=== PATIENT | female | born 1995 | race Caucasian/White ===

== ENCOUNTER 2017-06-16 20:06 | Emergency (ER) | payer OTHER ==
[~2017-06-16] VITALS: Ht 149.9 cm; Wt 69.0 kg
[2017-06-16 20:07] VITALS: BP 156/97; PULSE 105; RESP 16; TEMP 99.8; O2SAT 99
--- NOTE | 2017-06-16 21:13 | PD ---
HPI Chief Complaint: ENT Complaint Time Seen by Provider: 21:13 Travel History International Travel<30 days: No Contact w/Intl Traveler<30days: No Traveled to known affect area: No History of Present Illness HPI 22 year female presents to the emergency department for evaluation of sore throat 2 days. Patient states it is difficult to swallow due to the pain. She is able to control her secretions. No fever or chills. Pain is worse on the right than the left. No cough or congestion and no other symptoms to report. [facility] Past Medical History Medical History: Denies Significant Hx Immunizations Current: Yes ?: Not LMP: 06/04/17 Past Surgical History Tonsillectomy: Yes Social History Alcohol Use: No Tobacco Use: Yes (/2 PPD) Substance Use: No Allergies-Medications (Allergen,Severity, Reaction): Coded Allergies: No Known Allergies (Unverified , 06/16/17) Review of Systems Except as stated in HPI: all other systems reviewed are Neg Physical Exam Narrative GENERAL: Well-nourished, well-developed male patient in no acute distress SKIN: Focused skin assessment warm/dry. HEAD: Normocephalic. No mastoid tenderness EARS: Bilateral pinnae and external canals appear within normal limits. Bilateral tympanic membranes without erythema, dullness or perforation. EYES: No scleral icterus. No injection or drainage. ENT: Mucosa pink and moist. Exit erythema, no exudates. No uvular edema. No uvular, palatal, or tonsillar deviation. Airway patent. Nasal turbinates appear normal without nasal blood, purulent drainage or septal hematoma. NECK: Supple, trachea midline. No JVD. Anterior cervical lymphadenopathy. CARDIOVASCULAR: Regular rate and rhythm without murmurs, gallops, or rubs. RESPIRATORY: Breath sounds equal bilaterally. No accessory muscle use. GASTROINTESTINAL: Abdomen soft, non-tender, nondistended. Data Data Last Documented VS Vital Signs Date Time Temp Pulse Resp B/P Pulse Ox O2 Delivery O2 Flow Rate FiO2 06/16/17 20:07 99.8 105 16 156/97 99 Room Air Orders Group A Rapid Strep Screen (06/16/17 21:16) Dexamethasone Inj (Decadron Inj) (06/16/17 21:30) Strep Culture (Group A) (06/16/17 21:20) MDM Medical Decision Making Medical Screen Exam Complete: Yes Emergency Medical Condition: Yes Medical Record Reviewed: Yes Differential Diagnosis Viral pharyngitis versus strep pharyngitis versus tonsillitis versus viral syndrome versus allergies Narrative Course 22-year-old female presents to emergency department for evaluation of sore throat. Patient does have erythematous pharynx without any exudate. Strep screen stated. Patient is counseled on care and discharged at this time. Diagnosis Primary Impression: Viral pharyngitis Referrals: Primary Care Physician Patient Instructions: General Instructions, Pharyngitis (ED) Departure Forms: Tests/Procedures, Work Release Enter return to work date: Jun 18, 2017 Additional Instructions: Warm salt water gargles may help to alleviate sore throat symptoms Avoid abrasive and acidic foods Follow-up with primary care provider Tylenol and/or ibuprofen as directed on the package as needed for fever and/or pain Return immediately with any acute worsening of symptoms Med/Other Pt SpecificInfo: No Change to Meds Disposition: 01 DISCHARGE HOME Condition: Stable Dafne Fishman Jun 16, 2017 21:13
[2017-06-16] MEDS ORDERED: DEXAMETHASONE SOD PHOS 4 MG/ML VIAL IM ONE (21:30)
== END 2017-06-16 22:24 | disposition home or self-care (01) ==
LOC: NEPD 20:06
DX: J02.8 Acute pharyngitis due to other specified organisms (principal); F17.200 Nicotine dependence, unspecified, uncomplicated
CPT/HCPCS: 87081; 87880; 96372; 99284; J1100

== ENCOUNTER 2018-03-14 10:29 | Emergency (ER) | payer OTHER ==
[~2018-03-14] VITALS: Ht 165.1 cm; Wt 81.5 kg
[2018-03-14 10:36] VITALS: BP 136/83; PULSE 118; RESP 18; TEMP 98.8; O2SAT 98
[2018-03-14] MEDS ORDERED: REGL5TAB PO (11:10)
--- NOTE | 2018-03-14 11:10 | PD ---
HPI Chief Complaint: Related Problem Time Seen by Provider: 10:44 Travel History International Travel<30 days: No Contact w/Intl Traveler<30days: No Traveled to known affect area: No History of Present Illness HPI 23-year-old woman, about 15 weeks , no care, here with nausea vomiting diarrhea. A little bit of abdominal cramping. Her son was sick with nausea vomiting diarrhea several days ago. She has been sick for the past couple days. She taken some cramping today and so she came to the emergency department. No vaginal bleeding, no vaginal discharge, no urinary. She otherwise has been well and healthy. She is 2 para 1 with no problems with her previous . She had a little bit of morning sickness with this . Otherwise she had been doing well. History Past Medical History Medical History: Denies Significant Hx LMP: NOV 2017 Past Surgical History Surgical History: No Previous Surgery Social History Alcohol Use: No Tobacco Use: Yes (1/2 PPD) Allergies-Medications (Allergen,Severity, Reaction): Coded Allergies: No Known Allergies (Unverified Adverse Reaction, Unknown, 03/14/18) Review of Systems Except as stated in HPI: all other systems reviewed are Neg Physical Exam Narrative GENERAL: Well-appearing 23-year-old woman, no acute distress per SKIN: Focused skin assessment warm/dry. HEAD: Atraumatic. Normocephalic. EYES: Pupils equal and round. No scleral icterus. No injection or drainage. ENT: No nasal bleeding or discharge. Mucous membranes pink and moist. NECK: Trachea midline. No JVD. CARDIOVASCULAR: Regular rate and rhythm. No murmur appreciated. RESPIRATORY: No accessory muscle use. Clear to auscultation. Breath sounds equal bilaterally. GASTROINTESTINAL: Abdomen obese, soft, palpable uterus in the lower abdomen. MUSCULOSKELETAL: No obvious deformities. No clubbing. No cyanosis. No edema. NEUROLOGICAL: Awake and alert. No obvious cranial nerve deficits. Motor grossly within normal limits. Normal speech. PSYCHIATRIC: Appropriate mood and affect; insight and judgment normal. Data Data Last Documented VS Vital Signs Date Time Temp Pulse Resp B/P (MAP) Pulse Ox O2 Delivery O2 Flow Rate FiO2 03/14/18 10:36 98.8 118 18 136/83 (100) 98 Orders Orders Ed Poc Ultrasound (03/14/18 ) [facility] Medical Decision Making Medical Screen Exam Complete: Yes Emergency Medical Condition: Yes Differential Diagnosis Gastroenteritis, gastritis, ectopic, miscarriage, other Narrative Course 23-year-old woman with nausea vomiting diarrhea with known sick contact with gastroenteritis, looks well, [id number] ultrasound reassuring. Recommend supportive treatment. Procedures Procedure Narrative [id number] ultrasound: Focused transabdominal ultrasound performed at the bedside for the purpose of evaluating for intra-abdominal and well-being. Tilley intrauterine is identified, roughly 15 weeks 2 days in size, good heart movement with a heart rate about 150. Diagnosis Primary Impression: Acute gastroenteritis Additional Impression: Intrauterine Patient Instructions: General Instructions Additional Instructions: Use Reglan if needed for nausea or vomiting. Drink plenty fluids stay well-hydrated. Follow-up with OB at the first available appointment. Med/Other Pt SpecificInfo: Prescription(s) given Scripts Metoclopramide (Reglan) 5 Mg Tab 5 MG PO QID, #15 TAB 0 Refills Prov: Richard Hess MD 03/14/18 Disposition: 01 DISCHARGE HOME Condition: Stable Richard Hess MD Mar 14, 2018 11:10
== END 2018-03-14 11:36 | disposition home or self-care (01) ==
LOC: NEPD 10:29
DX: O99.612 Diseases of the digestive system complicating pregnancy, second trimester (principal); K52.9 Noninfective gastroenteritis and colitis, unspecified; O99.332 Smoking (tobacco) complicating pregnancy, second trimester; F17.200 Nicotine dependence, unspecified, uncomplicated; Z3A.15 15 weeks gestation of pregnancy

== ENCOUNTER 2018-03-18 10:07 | Emergency (ER) | payer OTHER ==
[~2018-03-18] VITALS: Ht 149.9 cm; Wt 82.0 kg
[~2018-03-18 10:07] MED LIST: REGL5TAB PO
[2018-03-18 10:09] VITALS: BP 124/80; PULSE 112; RESP 17; TEMP 98.1; O2SAT 99
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
== END 2018-03-18 10:48 | disposition home or self-care (01) ==
LOC: NEPD 10:07
DX: O26.892 Other specified pregnancy related conditions, second trimester (principal); R10.9 Unspecified abdominal pain; O99.332 Smoking (tobacco) complicating pregnancy, second trimester; F17.210 Nicotine dependence, cigarettes, uncomplicated; Z3A.16 16 weeks gestation of pregnancy
CPT/HCPCS: 99282

== ENCOUNTER 2018-08-13 15:13 | Inpatient (IN) ==
[2018-08-13 15:32] VITALS: RESP 18
--- NOTE | 2018-08-13 16:08 | ED ---
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 Patient is also complaining of severe vaginal pain since early this morning. She denies feeling any contractions. She only had one spot of bleeding and is not currently bleeding. Denies any abdominal pain. Baby is still moving. OB history in this : Uncomplicated -GBS positive - H/H : 10.5 - PNL WNL Obhx: VD x 1 : IOL for GHTN in 2016 Medhx: none Surg hx: tonsillectomy Social hx: current smoker 1/2 ppd Review of Systems All other systems reviewed negative except as stated in HPI PMFSH - Travel History Recent Travel in the [place] Within the Last 8 Weeks: No Recent Travel Out of the Country Within the Last 8 Weeks: No Medications and Allergies Allergies Allergy/AdvReac Type Severity Reaction Status Date / Time No Known Allergies Allergy Verified 08/13/18 15:34 Home Medications Medication Instructions Recorded Confirmed Type PNV cmb#95-ferrous fumarate-FA 1 tab PO DAILY 08/13/18 08/13/18 History [] amoxicillin 500 mg PO QID 08/13/18 08/13/18 History Exam Vital signs: Vital Signs 08/13/18 15:30 08/13/18 15:34 Temperature 98.4 F Pulse Rate 113 H Respiratory Rate 18 Blood Pressure 121/77 Intake & Output 08/12/18 08/13/18 08/13/18 18:59 06:59 18:59 Weight 91 kg Narrative: GENERAL: Well-nourished, well-developed patient. SKIN: Warm and dry. HEAD: Normocephalic and atraumatic. EYES: No scleral icterus. No injection or drainage. ENT: No nasal drainage noted. Mucous membranes pink. Airway patent. NECK: Supple, trachea midline. No JVD. CARDIOVASCULAR: Regular rate and rhythm without murmurs, gallops, or rubs. RESPIRATORY: Breath sounds equal bilaterally. No accessory muscle use. ABDOMEN/GI: Abdomen soft, non-tender, bowel sounds present, no rebound, no guarding Gravid to 37 weeks size Fundal Height: 37 GENITOURINARY: External Genitalia: intact and normal in appearance Cervical exam: 3 cm/70/-3 ballotable FHT's: Category 2 tachycardic, ellis every 2 to 4 minutes, with hydration improving to category 1 with continued contractions every 2 minutes Assessment and Plan - Diagnosis (1) 37 weeks gestation of Code(s): Z3A.37 - 37 weeks gestation of Status: Acute (2) Uterine contractions Status: Acute (3) Vaginal bleeding Code(s): N93.9 - Abnormal uterine and vaginal bleeding, unspecified Status: Acute - Plan at 37 weeks, presents in early labor. - admit to L&D - cxns q2, cont to monitor - cat 1 tracing, monitor EFM - GBS +, ABX ordered Discharge Plan - Discharge Disposition Patient Disposition: [address] [facility] [place] - Discharge Condition Condition: Stable - Physicians Team Primary Care Provider: NOT REQUIRED, Attending Provider: Jc Hagan - Rxs /Orders / Referrals /Forms Prescriptions: No Action amoxicillin 500 mg Tablet 500 mg PO QID PNV cmb#95-ferrous fumarate-FA [] 28 mg iron- 800 mcg Tablet 1 tab PO DAILY Referrals: NOT REQUIRED, [Primary Care Provider] - See Instructions
[2018-08-13] MEDS ORDERED: Penicillin G Potassium Inj 5,000,000 UNIT in Sodium Chloride 0.9% Inj 100 ML IV.SIG ONE (17:09)
[2018-08-13] MEDS ORDERED: fentaNYL Citrate Inj 100 MCG/2 ML Ampul IV.PUSH PRN ×2 (17:09)
[2018-08-13] MEDS ORDERED: Oxytocin 30 Units/500ml Premix 30 UNITS/500 ML BAG IV.SIG ONE (17:09)
[2018-08-13] MEDS ORDERED: Naloxone Inj 0.4 MG/ML Vial IV.PUSH PRN (17:09)
[2018-08-13] MEDS ORDERED: Sodium Chlor 0.9% Inj 500 ML IV.SIG PRN (17:09)
[2018-08-13] MEDS ORDERED: Sod Chloride 0.9% Inj 1,000 ML IV.CONT PRN (17:09)
[2018-08-13] MEDS ORDERED: Citric Acid/Sodium Citrate Liq 30 ML UDC PO SCH (17:15)
--- NOTE | 2018-08-13 17:53 | P.OBGPN ---
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 Patient is also complaining of severe vaginal pain since early this morning. She denies feeling any contractions. She only had one spot of bleeding and is not currently bleeding. Denies any abdominal pain. Baby is still moving. OB history in this : Uncomplicated -GBS positive - H/H : 10.5 - PNL WNL Obhx: VD x 1 : IOL for GHTN in 2016 Medhx: none Surg hx: tonsillectomy Social hx: current smoker 1/2 ppd Review of Systems All other systems reviewed negative except as stated in HPI PMFSH - Travel History Recent Travel in the [place] Within the Last 8 Weeks: No Recent Travel Out of the Country Within the Last 8 Weeks: No Medications and Allergies Allergies Allergy/AdvReac Type Severity Reaction Status Date / Time No Known Allergies Allergy Verified 08/13/18 15:34 Home Medications Medication Instructions Recorded Confirmed Type PNV cmb#95-ferrous fumarate-FA 1 tab PO DAILY 08/13/18 08/13/18 History [] amoxicillin 500 mg PO QID 08/13/18 08/13/18 History Exam Vital signs: Vital Signs 08/13/18 15:30 08/13/18 15:34 Temperature 98.4 F Pulse Rate 113 H Respiratory Rate 18 Blood Pressure 121/77 Intake & Output 08/12/18 08/13/18 08/13/18 18:59 06:59 18:59 Weight 91 kg Narrative: GENERAL: Well-nourished, well-developed patient. SKIN: Warm and dry. HEAD: Normocephalic and atraumatic. EYES: No scleral icterus. No injection or drainage. ENT: No nasal drainage noted. Mucous membranes pink. Airway patent. NECK: Supple, trachea midline. No JVD. CARDIOVASCULAR: Regular rate and rhythm without murmurs, gallops, or rubs. RESPIRATORY: Breath sounds equal bilaterally. No accessory muscle use. ABDOMEN/GI: Abdomen soft, non-tender, bowel sounds present, no rebound, no guarding Gravid to 37 weeks size Fundal Height: 37 GENITOURINARY: External Genitalia: intact and normal in appearance Cervical exam: 3 cm/70/-3 ballotable FHT's: Category 2 tachycardic, ellis every 2 to 4 minutes, with hydration improving to category 1 with continued contractions every 2 minutes Assessment and Plan - Diagnosis (1) 37 weeks gestation of Code(s): Z3A.37 - 37 weeks gestation of Status: Acute (2) Uterine contractions Status: Acute (3) Vaginal bleeding Code(s): N93.9 - Abnormal uterine and vaginal bleeding, unspecified Status: Acute - Plan at 37 weeks, presents in early labor. - admit to L&D - cxns q2, cont to monitor - cat 1 tracing, monitor EFM - GBS +, ABX ordered
[2018-08-13 18:13] LABS: Baso # (Auto) 0.1 th/mm3 (0.0-0.2); Baso % (Auto) 0.7 % (0.0-2.0); Eos # (Auto) 0.2 th/mm3 (0.0-0.4); Eos % (Auto) 1.1 % (0.0-4.0); Hematocrit 30.1 % (35.0-46.0); Hemoglobin 10.1 gm/dL (11.6-15.3); Lymph # (Auto) 3.1 th/mm3 (1.0-4.8); Lymph % (Auto) 22.5 % (9.0-44.0); Mean Corpuscular HGB Conc 33.5 % (32.0-36.0); Mean Corpuscular Hemoglobin 30.3 pg (27.0-34.0); Mean Corpuscular Volume 90.3 fL (80.0-100.0); Mono # (Auto) 1.2 th/mm3 (0.0-0.9); Mono % (Auto) 8.7 % (0.0-8.0); Neut # (Auto) 9.2 th/mm3 (1.8-7.7); Platelet Count 336 th/mm3 (150-450); Red Blood Count 3.34 mil/mm3 (4.00-5.30); Red Cell Distribution Width 13.3 % (11.6-17.2); White Blood Count 13.7 th/mm3 (4.0-11.0)
[2018-08-13 18:36] LABS: Amphetamine Urine With Conf Neg (Neg); Benzodiazepine Urine With Conf Neg (Neg)
[2018-08-13 18:42] LABS: RBC Morphology Normal (Normal)
[2018-08-13 18:43] LABS: Platelet Estimate Normal (Normal); Platelet Morphology Normal (Normal)
[2018-08-13 18:57] LABS: Bacteria,Urine Occasional /hpf; Bilirubin,Urine Negative (Negative); Calcium Oxalate Crystals,Urine Few /hpf; Clarity,Urine Hazy (Clear); Color,Urine Yellow (Yellw/Straw); Glucose,Urine (UA) Negative (Negative); Leukocyte Esterase,Urine Trace (Negative); Mucus,Urine Few /lpf (Occasional); Nitrite,Urine Negative (Negative); Specific Gravity,Urine 1.014 (1.002-1.035); Squamous Epithelial Cell,Urine 5 /hpf (0-5)
[2018-08-13] MEDS ORDERED: Penicillin G Potassium Inj 2,500,000 UNIT in Sodium Chlor 0.9% Inj 100 ML IV.SIG SCH (21:11)
[2018-08-13 22:24] VITALS: BP 112/68; PULSE 104
[2018-08-13 22:56] VITALS: TEMP 98.2
== END 2018-08-13 22:45 | disposition home or self-care (01) ==
LOC: HOBED 15:18 → H2E 17:22
PROVIDERS: ADMIT Obstetrics & Gynecology Maternal & Fetal Medicine; ATTEND Obstetrics & Gynecology Maternal & Fetal Medicine

== ENCOUNTER 2018-08-20 12:23 | Inpatient (IN) ==
[2018-08-20] MEDS ORDERED: Oxytocin 30 Units/500ml Premix 30 UNITS/500 ML BAG IV.SIG ONE ×2 (13:19→16:00)
[2018-08-20] MEDS ORDERED: Citric Acid/Sodium Citrate Liq 30 ML UDC PO SCH ×2 (13:30→15:30)
--- NOTE | 2018-08-20 13:31 | P.HPOB ---
History of Present Illness Primary Care Physician: Isacc Stephenson M.D. Chief Complaint: urge to push History of Present Illness: 34-year-old at 37 weeks 4 days gestation chief complaint I have the urge to push. Patient of Dr. Stephenson complicated by type 1 diabetes. Previous delivery x2 Weeks Gestation:: 37 Para: 3 : 4 Review of Systems All other systems reviewed negative except as stated in HPI Medications and Allergies Active Medications: Active Medications Citric Acid/Sodium Citrate (Sodium Citrate/Citric Acid Liq) 30 ml PO STATUARY PAINTER GÓMEZ Stop: 08/24/18 13:29 Diphtheria/Pertussis/Tetanus Vacc (Boostrix Vaccine Inj) 0.5 ml IM .ONCE ONE Stop: 08/21/18 16:01 Lactated Ringer's (Lr 1000 Ml Inj) 1,000 mls @ 2,000 mls/hr IV.SIG .Q30M ONE Stop: 08/20/18 13:48 Lactated Ringer's (Lr 1000 Ml Inj) 1,000 mls @ 150 mls/hr IV.CONT .Q6H40M GÓMEZ Oxytocin (Pitocin 30 Units/Ns 500 Ml Premix) 30 units in 500 mls @ 100 mls/hr IV.SIG ONCE ONE Stop: 08/20/18 18:18 Oxytocin (Pitocin 30 Units/Ns 500 Ml Premix) 30 units in 500 mls @ 100 mls/hr IV.SIG UNSCH PRN PRN Reason: Heavy bleeding Lactated Ringer's (Lr 1000 Ml Inj) 1,000 mls @ 100 mls/hr IV.CONT .Q10H GÓMEZ Stop: 08/21/18 14:18 Measles/Mumps/Rubella Vaccine Live (M-M-R Ii Vaccine Inj) 0.5 ml SQ .ONCE ONE Stop: 08/21/18 16:01 Oxycodone/Acetaminophen (Percocet 5/325 Mg) 1 tab PO Q4H PRN PRN Reason: PAIN SCALE 3 TO 5 Oxycodone/Acetaminophen (Percocet 5/325 Mg) 2 tab PO Q4H PRN PRN Reason: PAIN SCALE 6 TO 10 Sodium Chloride (Ns Flush) 2 ml IV.FLUSH BID GÓMEZ Sodium Chloride (Ns Flush) 2 ml IV.FLUSH PRN PRN PRN Reason: FLUSH AFTER USING IV ACCESS Allergies Allergy/AdvReac Type Severity Reaction Status Date / Time No Known Allergies Allergy Verified 08/13/18 15:34 Home Medications Medication Instructions Recorded Confirmed Type PNV cmb#95-ferrous fumarate-FA 1 tab PO DAILY 08/13/18 08/20/18 History [] amoxicillin 500 mg PO QID 08/13/18 08/20/18 History Exam Vital signs: Vital Signs 08/20/18 12:58 Pulse Rate 114 H Blood Pressure 132/91 H Intake & Output 08/19/18 08/20/18 08/20/18 18:59 06:59 18:59 Weight 94.347 kg - Constitutional mild distress - Routine HEENT Exam Head: Present: normocephalic Eye: Present: PERRL ENT: Present: mucous membranes moist - Routine Neck Exam Present: supple - Routine Chest/Breast/Axilla Exam Chest wall: Absent: tenderness - Routine Respiratory Exam Present: CTA bilaterally - Routine Cardiovascular Exam Present: RRR - Routine Abdominal Exam Present: soft - Routine Exam Comments: Fundal height consistent with gestational age. VE 4-5/80%/-1 station question rupture of membranes-I do not feel amniotic sac. - Routine Neurological Exam Present: alert, oriented X3 Caprini VTE Risk Assessment Caprini VTE Risk Assessment: No/Low Risk (score <= 1) Caprini Risk Assessment Model: Point Value = 1 Point Value = 2 Point Value = 3 Point Value = 5 Age 41-60 Minor surgery BMI > 25 kg/m2 Swollen legs Varicose veins or History of unexplained or recurrent spontaneous Oral contraceptives or hormone replacement Sepsis (< 1 month) Serious lung disease, including pneumonia (< 1 month) Abnormal pulmonary function Acute myocardial infarction Congestive heart failure (< 1 month) History of inflammatory bowel disease Medical patient at bed rest Age 61-74 Arthroscopic surgery Major open surgery (> 45 min) Laparoscopic surgery (> 45 min) Malignancy Confined to bed (> 72 hours) Immobilizing plaster cast Central venous access Age >= 75 History of VTE Family history of VTE Factor V Leiden Prothrombin [id number] Lupus anticoagulant Anticardiolipin antibodies Elevated serum homocysteine Heparin-induced thrombocytopenia Other congenital or acquired thrombophilia Stroke (< 1 month) Elective arthroplasty Hip, pelvis, or leg fracture Acute spinal cord injury (< 1 month) Prophylaxis Regimen: Total Risk Factor Score Risk Level Prophylaxis Regimen 0-1 Low Early ambulation 2 Moderate Order ONE of the following: *Sequential Compression Device (SCD) *Heparin 5000 units SQ BID 3-4 Higher Order ONE of the following medications: *Heparin 5000 units SQ TID *Enoxaparin/Lovenox 40 mg SQ daily (WT < 150 kg, CrCl > 30 mL/min) *Enoxaparin/Lovenox 30 mg SQ daily (WT < 150 kg, CrCl > 10-29 mL/min) *Enoxaparin/Lovenox 30 mg SQ BID (WT < 150 kg, CrCl > 30 mL/min) AND/OR *Sequential Compression Device (SCD) 5 or more Highest Order ONE of the following medications: *Heparin 5000 units SQ TID (Preferred with Epidurals) *Enoxaparin/Lovenox 40 mg SQ daily (WT < 150 kg, CrCl > 30 mL/min) *Enoxaparin/Lovenox 30 mg SQ daily (WT < 150 kg, CrCl > 10-29 mL/min) *Enoxaparin/Lovenox 30 mg SQ BID (WT < 150 kg, CrCl > 30 mL/min) AND *Sequential Compression Device (SCD) Assessment and Plan - Diagnosis (1) Previous delivery, antepartum Code(s): O34.219 - Maternal care for unspecified type scar from previous delivery Status: Acute (2) Active labor at term Status: Acute (3) 37 weeks gestation of Code(s): Z3A.37 - 37 weeks gestation of Status: Acute (4) Type 1 diabetes mellitus affecting in third trimester, antepartum Code(s): O24.013 - Pre-existing type 1 diabetes mellitus, in , third trimester Status: Acute - Plan Random blood sugar now 310 patient self administered 4 units of insulin will administer another 4 units. Patient is for delivery alternatives benefits complications understood. Patient's primary automotive production worker is at the bedside. Patient also desires tubal sterilization consents to be obtained.
--- NOTE | 2018-08-20 13:52 | ED ---
History of Present Illness [facility] Care Physician: [facility] Chief Complaint: Blood pressure check History of Present Illness: This is a 23-year-old at 37 weeks received care from [facility]. Patient noted heart her blood pressure was elevated here for rule out preeclampsia. Her first she was induced for elevated BP. Father the baby is the same as for her previous . Denies chest pain shortness of breath right upper quadrant pain or leg pain. 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 OPERATOR GÓMEZ Stop: 08/24/18 13:29 Diphtheria/Pertussis/Tetanus Vacc (Boostrix Vaccine Inj) 0.5 ml IM .ONCE ONE Stop: 08/21/18 16:01 Lactated Ringer's (Lr 1000 Ml Inj) 1,000 mls @ 2,000 mls/hr IV.SIG .Q30M ONE Stop: 08/20/18 13:48 Lactated Ringer's (Lr 1000 Ml Inj) 1,000 mls @ 150 mls/hr IV.CONT .Q6H40M GÓMEZ Oxytocin (Pitocin 30 Units/Ns 500 Ml Premix) 30 units in 500 mls @ 100 mls/hr IV.SIG ONCE ONE Stop: 08/20/18 18:18 Oxytocin (Pitocin 30 Units/Ns 500 Ml Premix) 30 units in 500 mls @ 100 mls/hr IV.SIG UNSCH PRN PRN Reason: Heavy bleeding Lactated Ringer's (Lr 1000 Ml Inj) 1,000 mls @ 100 mls/hr IV.CONT .Q10H GÓMEZ Stop: 08/21/18 14:18 Measles/Mumps/Rubella Vaccine Live (M-M-R Ii Vaccine Inj) 0.5 ml SQ .ONCE ONE Stop: 08/21/18 16:01 Oxycodone/Acetaminophen (Percocet 5/325 Mg) 1 tab PO Q4H PRN PRN Reason: PAIN SCALE 3 TO 5 Oxycodone/Acetaminophen (Percocet 5/325 Mg) 2 tab PO Q4H PRN PRN Reason: PAIN SCALE 6 TO 10 Sodium Chloride (Ns Flush) 2 ml IV.FLUSH BID GÓMEZ Sodium Chloride (Ns Flush) 2 ml IV.FLUSH PRN PRN PRN Reason: FLUSH AFTER USING IV ACCESS Allergies Allergy/AdvReac Type Severity Reaction Status Date / Time No Known Allergies Allergy Verified 08/13/18 15:34 Home Medications Medication Instructions Recorded Confirmed Type PNV cmb#95-ferrous fumarate-FA 1 tab PO DAILY 08/13/18 08/20/18 History [] amoxicillin 500 mg PO QID 08/13/18 08/20/18 History Exam Vital signs: Vital Signs 08/20/18 12:58 Pulse Rate 114 H Blood Pressure 132/91 H Intake & Output 08/19/18 08/20/18 08/20/18 18:59 06:59 18:59 Weight 94.347 kg - Constitutional no acute distress - Routine HEENT Exam Head: Present: normocephalic ENT: Present: mucous membranes moist - Routine Neck Exam Present: supple - Routine Chest/Breast/Axilla Exam Chest wall: Absent: tenderness Breast: Absent: tenderness - Routine Respiratory Exam Present: CTA bilaterally - Routine Cardiovascular Exam Present: RRR - Routine Abdominal Exam Present: soft. Absent: tenderness - Routine Skin Exam Present: intact - Routine Neurological Exam Present: alert, oriented X3, normal reflexes, moving all extremities. Absent: abnormal gait Results - Labs CBC & Chem 7: 08/20/18 13:35 08/20/18 13:35 Assessment and Plan - Diagnosis (1) Elevated blood pressure affecting in third trimester, antepartum Code(s): O16.3 - Unspecified maternal hypertension, third trimester Status: Acute (2) 38 weeks gestation of Code(s): Z3A.38 - 38 weeks gestation of Status: Acute (3) Group B streptococcal carriage complicating Code(s): O99.820 - Streptococcus B carrier state complicating Status : Acute - Plan Plan CBC CMP uric acid urinalysis. At this point in time BPs are stable. Serial blood pressures then reevaluate. Admit Discharge Plan - Discharge Disposition Patient Disposition: 30 Still Patient - Discharge Condition Condition: Stable - Physicians Team ED Provider: Mira Dimas Primary Care Provider: NOT REQUIRED,
[2018-08-20 14:07] LABS: Baso # (Auto) 0.1 th/mm3 (0.0-0.2); Baso % (Auto) 0.4 % (0.0-2.0); Eos # (Auto) 0.1 th/mm3 (0.0-0.4); Eos % (Auto) 0.9 % (0.0-4.0); Hematocrit 25.8 % (35.0-46.0); Hemoglobin 9.3 gm/dL (11.6-15.3); Lymph # (Auto) 2.7 th/mm3 (1.0-4.8); Lymph % (Auto) 21.4 % (9.0-44.0); Mean Corpuscular HGB Conc 35.9 % (32.0-36.0); Mean Corpuscular Hemoglobin 31.8 pg (27.0-34.0); Mean Corpuscular Volume 88.8 fL (80.0-100.0); Mono # (Auto) 0.9 th/mm3 (0.0-0.9); Mono % (Auto) 7.4 % (0.0-8.0); Neut # (Auto) 8.9 th/mm3 (1.8-7.7); Neut % (Auto) 69.9 % (16.0-70.0); Platelet Count 295 th/mm3 (150-450); Red Blood Count 2.91 mil/mm3 (4.00-5.30); Red Cell Distribution Width 13.3 % (11.6-17.2); White Blood Count 12.7 th/mm3 (4.0-11.0)
[2018-08-20 14:22] LABS: Albumin 2.4 g/dL (3.4-5.0); Anion Gap 11 meq/L (5-15); Aspartate Aminotransferase 9 U/L (15-37); Blood Urea Nitrogen 4 mg/dL (7-18); Calcium 7.8 mg/dL (8.5-10.1); Carbon Dioxide 22.8 meq/L (21.0-32.0); Chloride 109 meq/L (98-107); Glomerular Filtration Rate Greater Than 89 mL/min (>89); Glucose,Random 87 mg/dL (74-106); Potassium 3.6 meq/L (3.5-5.1); Sodium 143 meq/L (136-145)
[2018-08-20 14:24] LABS: Alkaline Phosphatase 143 U/L (45-117); Total Protein 6.3 g/dL (6.4-8.2)
[2018-08-20 15:26] LABS: Bilirubin,Urine Negative (Negative); Clarity,Urine Clear (Clear); Glucose,Urine (UA) Negative (Negative); Leukocyte Esterase,Urine Moderate (Negative); Nitrite,Urine Negative (Negative); Specific Gravity,Urine 1.005 (1.002-1.035); Squamous Epithelial Cell,Urine 6 /hpf (0-5)
[2018-08-20] MEDS ORDERED: Naloxone Inj 0.4 MG/ML Vial IV.PUSH PRN ×2 (15:28→22:26)
[2018-08-20] MEDS ORDERED: Sodium Chlor 0.9% Inj 500 ML IV.SIG PRN (15:28)
[2018-08-20] MEDS ORDERED: fentaNYL Citrate Inj 100 MCG/2 ML Ampul IV.PUSH PRN ×2 (15:28)
[2018-08-20] MEDS ORDERED: Sod Chloride 0.9% Inj 1,000 ML IV.CONT PRN (15:28)
--- NOTE | 2018-08-20 15:28 | P.HPOB ---
History of Present Illness Primary Care Physician: NOT REQUIRED Chief Complaint: Blood pressure check History of Present Illness: 34-year-old at 37 weeks 4 days gestation chief complaint I have the urge to push. Patient of Dr. Stephenson complicated by type 1 diabetes. Previous delivery x2 Weeks Gestation:: 37 Medications and Allergies Allergies Allergy/AdvReac Type Severity Reaction Status Date / Time No Known Allergies Allergy Verified 08/13/18 15:34 Home Medications Medication Instructions Recorded Confirmed Type PNV cmb#95-ferrous fumarate-FA 1 tab PO DAILY 08/13/18 08/20/18 History [] amoxicillin 500 mg PO QID 08/13/18 08/20/18 History Exam Vital signs: Vital Signs 08/20/18 12:58 08/20/18 13:00 08/20/18 14:45 Temperature 98.6 F Pulse Rate 114 H 108 H 96 H Respiratory Rate 20 Blood Pressure 132/91 H 124/77 138/87 08/20/18 15:15 Temperature Pulse Rate 104 H Respiratory Rate Blood Pressure 128/93 H Intake & Output 08/19/18 08/20/18 08/20/18 18:59 06:59 18:59 Weight 94.347 kg Results - Labs CBC & Chem 7: 08/20/18 13:35 08/20/18 13:35 Labs: Laboratory Results - last 24 hr 08/20/18 08/20/18 08/20/18 13:35 13:35 13:35 WBC 12.7 H RBC 2.91 L Hgb 9.3 L Hct 25.8 L MCV 88.8 MCH 31.8 MCHC 35.9 RDW 13.3 Plt Count 295 MPV 9.0 Neut % (Auto) 69.9 Lymph % (Auto) 21.4 Dent % (Auto) 7.4 Eos % (Auto) 0.9 Baso % (Auto) 0.4 Neut # (Auto) 8.9 H Lymph # (Auto) 2.7 Dent # (Auto) 0.9 Eos # (Auto) 0.1 Baso # (Auto) 0.1 WBC Differential . Differential Comment Auto diff final Sodium 143 Potassium 3.6 Chloride 109 H Carbon Dioxide 22.8 Anion Gap 11 BUN 4 L Creatinine 0.48 L Estimated GFR Greater than 89 Random Glucose 87 Uric Acid 3.8 Calcium 7.8 L Total Bilirubin 0.1 L AST 9 L ALT Less than 6 L Alkaline Phosphatase 143 H Total Protein 6.3 L Albumin 2.4 L Blood Type Blood Type Recheck Antibody Screen 08/20/18 13:35 WBC RBC Hgb Hct MCV MCH MCHC RDW Plt Count MPV Neut % (Auto) Lymph % (Auto) Dent % (Auto) Eos % (Auto) Baso % (Auto) Neut # (Auto) Lymph # (Auto) Dent # (Auto) Eos # (Auto) Baso # (Auto) WBC Differential Differential Comment Sodium Potassium Chloride Carbon Dioxide Anion Gap BUN Creatinine Estimated GFR Random Glucose Uric Acid Calcium Total Bilirubin AST ALT Alkaline Phosphatase Total Protein Albumin Blood Type AB Positive Blood Type Recheck Not needed Antibody Screen Negative Caprini VTE Risk Assessment Caprini Risk Assessment Model: Point Value = 1 Point Value = 2 Point Value = 3 Point Value = 5 Age 41-60 Minor surgery BMI > 25 kg/m2 Swollen legs Varicose veins or History of unexplained or recurrent spontaneous Oral contraceptives or hormone replacement Sepsis (< 1 month) Serious lung disease, including pneumonia (< 1 month) Abnormal pulmonary function Acute myocardial infarction Congestive heart failure (< 1 month) History of inflammatory bowel disease Medical patient at bed rest Age 61-74 Arthroscopic surgery Major open surgery (> 45 min) Laparoscopic surgery (> 45 min) Malignancy Confined to bed (> 72 hours) Immobilizing plaster cast Central venous access Age >= 75 History of VTE Family history of VTE Factor V Leiden Prothrombin [id number] Lupus anticoagulant Anticardiolipin antibodies Elevated serum homocysteine Heparin-induced thrombocytopenia Other congenital or acquired thrombophilia Stroke (< 1 month) Elective arthroplasty Hip, pelvis, or leg fracture Acute spinal cord injury (< 1 month) Prophylaxis Regimen: Total Risk Factor Score Risk Level Prophylaxis Regimen 0-1 Low Early ambulation 2 Moderate Order ONE of the following: *Sequential Compression Device (SCD) *Heparin 5000 units SQ BID 3-4 Higher Order ONE of the following medications: *Heparin 5000 units SQ TID *Enoxaparin/Lovenox 40 mg SQ daily (WT < 150 kg, CrCl > 30 mL/min) *Enoxaparin/Lovenox 30 mg SQ daily (WT < 150 kg, CrCl > 10-29 mL/min) *Enoxaparin/Lovenox 30 mg SQ BID (WT < 150 kg, CrCl > 30 mL/min) AND/OR *Sequential Compression Device (SCD) 5 or more Highest Order ONE of the following medications: *Heparin 5000 units SQ TID (Preferred with Epidurals) *Enoxaparin/Lovenox 40 mg SQ daily (WT < 150 kg, CrCl > 30 mL/min) *Enoxaparin/Lovenox 30 mg SQ daily (WT < 150 kg, CrCl > 10-29 mL/min) *Enoxaparin/Lovenox 30 mg SQ BID (WT < 150 kg, CrCl > 30 mL/min) AND *Sequential Compression Device (SCD) Assessment and Plan - Plan Random blood sugar now 310 patient self administered 4 units of insulin will administer another 4 units. Patient is for delivery alternatives benefits complications understood. Patient's primary asbestos textile supervisor is at the bedside. Patient also desires tubal sterilization consents to be obtained.
[2018-08-20 15:31] LABS: Color,Urine Light-Yellow (Yellw/Straw)
[2018-08-20] MEDS ORDERED: Diphtheria/Tetanus/Pertussis Vaccine Inj 0.5 ML Syringe IM ONE (16:00)
[2018-08-20] MEDS ORDERED: Penicillin G Potassium Inj 5,000,000 UNIT in Sodium Chloride 0.9% Inj 100 ML IV.SIG ONE (16:00)
[2018-08-20] MEDS ORDERED: Measles/Mumps/Rubella Vaccine Inj 0.5 ML Vial SQ ONE (16:00)
[2018-08-20 16:45] LABS: Baso # (Auto) 0.1 th/mm3 (0.0-0.2); Baso % (Auto) 0.4 % (0.0-2.0); Eos # (Auto) 0.1 th/mm3 (0.0-0.4); Hematocrit 29.6 % (35.0-46.0); Lymph # (Auto) 2.8 th/mm3 (1.0-4.8); Lymph % (Auto) 19.1 % (9.0-44.0); Mean Corpuscular HGB Conc 33.7 % (32.0-36.0); Mean Corpuscular Hemoglobin 30.2 pg (27.0-34.0); Mean Corpuscular Volume 89.6 fL (80.0-100.0); Mono # (Auto) 1.1 th/mm3 (0.0-0.9); Mono % (Auto) 7.2 % (0.0-8.0); Neut # (Auto) 10.6 th/mm3 (1.8-7.7); Neut % (Auto) 72.3 % (16.0-70.0); Platelet Count 304 th/mm3 (150-450); Red Blood Count 3.31 mil/mm3 (4.00-5.30); Red Cell Distribution Width 13.5 % (11.6-17.2); White Blood Count 14.7 th/mm3 (4.0-11.0)
[2018-08-20 16:56] LABS: Amphetamine Urine With Conf Neg (Neg); Benzodiazepine Urine With Conf Neg (Neg)
[2018-08-20] MEDS ORDERED: Oxytocin 30 Units/500ml Premix 30 UNITS/500 ML BAG IV.SIG PRN (18:19)
[2018-08-20] MEDS ORDERED: Oxytocin 30 Units/500ml Premix 30 UNITS/500 ML BAG IV.CONT PRN ×2 (18:44→22:26)
[2018-08-20] MEDS ORDERED: fentaNYL 2MCG-Bupiv 0.125% Epi 150 ML EPIDURAL ONE (20:21)
[2018-08-20] MEDS ORDERED: Lidocaine 1%/Epinephrine 1:100,000 Inj 20 ML Vial ONE (20:28)
[2018-08-20] MEDS ORDERED: fentaNYL Citrate Inj 100 MCG/2 ML Ampul EPIDURAL ONE (20:49)
[2018-08-20] MEDS ORDERED: fentaNYL 2MCG-Bupiv 0.125% Epi 150 ML EPIDURAL PRN (20:49)
[2018-08-20] MEDS: Penicillin G Potassium Inj 2,500,000 UNIT in Sodium Chlor 0.9% Inj 100 ML IV.SIG SCH (20:51)
--- NOTE | 2018-08-20 22:03 | P.OBLABOR ---
Subjective Interval history: MD notified by RN questionable vulvar lesion On exam patient's left labia benign genital warts flesh-colored of the vulva Vaginal exam 8 cm 100% effaced +1 station heart rate category 1 Delivery Imminent Objective Vital Signs: Vital Signs - 8 hr 08/20/18 14:45 08/20/18 15:15 08/20/18 15:30 Temperature Pulse Rate 96 H 104 H 106 H Respiratory Rate Blood Pressure 138/87 128/93 H 129/88 08/20/18 15:45 08/20/18 17:02 08/20/18 19:15 Temperature 97.9 F Pulse Rate 108 H 110 H 108 H Respiratory Rate 18 Blood Pressure 135/99 H 141/95 H 160/98 H 08/20/18 19:21 08/20/18 19:30 08/20/18 20:03 Temperature Pulse Rate 102 H 95 H 93 H Respiratory Rate 18 Blood Pressure 148/85 H 147/87 H 150/91 H 08/20/18 20:27 08/20/18 20:30 08/20/18 20:44 Temperature Pulse Rate 99 H 110 H 104 H Respiratory Rate 18 18 Blood Pressure 152/91 H 160/100 H 157/89 H 08/20/18 20:50 08/20/18 21:10 08/20/18 21:25 Temperature 98.4 F Pulse Rate 97 H 101 H 100 H Respiratory Rate 18 Blood Pressure 144/84 H 139/81 132/84 08/20/18 21:30 08/20/18 21:50 Temperature Pulse Rate 88 89 Respiratory Rate Blood Pressure 134/78 158/90 H Objective: Pelvic Exam: Cervix: [-] Dilatation: [-] Effacement: [-] Station: [-] Presentation: [-] Membranes: [intact or ruptured] Uterine Contractions: [-] FHT's: Category: [-] Baseline: [-] Reactive: [-] Variability: [-] Decels: [-] Assessment and Plan - Diagnosis (1) Elevated blood pressure affecting in third trimester, antepartum Code(s): O16.3 - Unspecified maternal hypertension, third trimester Status: Acute (2) 38 weeks gestation of Code(s): Z3A.38 - 38 weeks gestation of Status: Acute (3) Group B streptococcal carriage complicating Code(s): O99.820 - Streptococcus B carrier state complicating Status : Acute - Plan Random blood sugar now 310 patient self administered 4 units of insulin will administer another 4 units. Patient is for delivery alternatives benefits complications understood. Patient's primary supervisor gate services is at the bedside. Patient also desires tubal sterilization consents to be obtained.
[2018-08-20] MEDS ORDERED: Witch Hazel 50%/Glyderin 12.5% 40 Pad Jar RECTAL PRN (22:26)
[2018-08-20] MEDS ORDERED: Benzocaine 20% Top Spray 60 ML Can TOPICAL PRN (22:26)
[2018-08-20] MEDS ORDERED: Acetaminophen 325 MG Tablet PO PRN (22:26)
[2018-08-20] MEDS ORDERED: Bisacodyl 10 MG Supp RECTAL PRN (22:26)
[2018-08-20] MEDS ORDERED: Zolpidem Tartrate 5 MG Tablet PO PRN (22:26)
--- NOTE | 2018-08-20 22:26 | P.OBDELI ---
Weeks Gestation: 38 Medical Induction of Labor: No Artificial Rupture of Membrane: Yes Anesthesia: Epidural Episiotomy: none Vaginal Delivery: Normal Presentation: Occiput anterior Nuchal Cord: None Delayed Cord Clamping (45 sec): Yes Placenta: Spontaneous delivery, Intact, 3 vessel cord Laceration: 1 deg (left, periurethral ) Estimated blood loss (mL): 200 : Female, Single Additional Information: Attending OBH present and supervised
--- NOTE | 2018-08-21 08:31 | P.PNOB ---
Subjective Post day: 1 Interval history: Patient is a 23-year-old G 2 P 2 delivered at 38 weeks. Patient is day 1 after spontaneous vaginal delivery. Patient does have a history of gestational hypertension. Patient's pain is well-controlled. Patient reports eating and drinking without any nausea or vomiting. Patient reports minimal bleeding. Patient has passed gas but no bowel movements. Patient is walking without lower extremity pain or shortness of breath. She denies chest pain, headache or dizziness. Objective Vital Signs/I&O: Vital Signs 08/20/18 12:58 08/20/18 13:00 08/20/18 14:45 Temperature 98.6 F Pulse Rate 114 H 108 H 96 H Respiratory Rate 20 Blood Pressure 132/91 H 124/77 138/87 08/20/18 15:15 08/20/18 15:30 08/20/18 15:45 Temperature Pulse Rate 104 H 106 H 108 H Respiratory Rate Blood Pressure 128/93 H 129/88 135/99 H 08/20/18 17:02 08/20/18 19:15 08/20/18 19:21 Temperature 97.9 F Pulse Rate 110 H 108 H 102 H Respiratory Rate 18 Blood Pressure 141/95 H 160/98 H 148/85 H 08/20/18 19:30 08/20/18 20:03 08/20/18 20:27 Temperature Pulse Rate 95 H 93 H 99 H Respiratory Rate 18 18 Blood Pressure 147/87 H 150/91 H 152/91 H 08/20/18 20:30 08/20/18 20:44 08/20/18 20:50 Temperature Pulse Rate 110 H 104 H 97 H Respiratory Rate 18 Blood Pressure 160/100 H 157/89 H 144/84 H 08/20/18 21:10 08/20/18 21:25 08/20/18 21:30 Temperature 98.4 F Pulse Rate 101 H 100 H 88 Respiratory Rate 18 Blood Pressure 139/81 132/84 134/78 08/20/18 21:50 08/20/18 22:00 08/20/18 22:25 Temperature 98.0 F Pulse Rate 89 93 H Respiratory Rate 18 18 Blood Pressure 158/90 H 149/90 H 08/20/18 22:30 08/20/18 22:40 08/20/18 22:49 Temperature Pulse Rate 98 H 105 H Respiratory Rate 18 18 Blood Pressure 155/90 H 137/81 08/20/18 23:00 08/20/18 23:10 08/20/18 23:15 Temperature Pulse Rate 112 H 97 H Respiratory Rate 18 Blood Pressure 151/94 H 135/87 08/20/18 23:25 08/20/18 23:33 08/21/18 00:00 Temperature Pulse Rate 95 H 91 H Respiratory Rate 18 18 Blood Pressure 152/89 H 141/87 H 08/21/18 00:25 08/21/18 04:00 Temperature 98.0 F 97.7 F Pulse Rate 93 H 86 Respiratory Rate 18 19 Blood Pressure 140/81 146/95 H Intake & Output 08/20/18 08/21/18 08/21/18 18:59 06:59 18:59 Intake Total 100 / 100 1000 / 1000 Balance 100 / 100 1000 / 1000 Weight 94.347 kg Intake: IV 100 / 100 1000 / 1000 LR 1000 mL Inj 1,000 ML @ 125 1000 / 1000 mls/hr IV.CONT .Q8H GÓMEZ Rx#: [id number] Pfizerpen-G Inj 5,000,000 UNIT 100 / 100 In NS Inj 100 ML @ 200 mls/hr IV.SIG ONCE ONE Rx#:[id number] Result Diagrams: 08/20/18 16:05 08/20/18 13:35 Objective Remarks: GENERAL: Well-nourished, well-developed patient. CARDIOVASCULAR: Regular rate and rhythm without murmurs, gallops, or rubs. RESPIRATORY: Breath sounds equal bilaterally. No accessory muscle use. ABDOMEN/GI: Abdomen soft, non-tender. Fundus: Firm, non-tender at umbilicus. GENITOURINARY: Light to moderate bleeding. EXTREMITIES: No cyanosis or edema, non-tender, without signs of DVT. Medications and IVs: Active Medications Acetaminophen (Tylenol) 650 mg PO Q4H PRN PRN Reason: PAIN SCALE 1 TO 2 Al Hydroxide/Mg Hydroxide (Milk Of Magnesia Liq) 30 ml PO Q12H PRN PRN Reason: Mild Constipation Benzocaine (Americaine 20% Top Raymond) 1 spray TOPICAL Q4H PRN PRN Reason: For Perineum Discomfort Last Admin: 08/21/18 01:11 Dose: 1 spray Bisacodyl (Dulcolax Supp) 10 mg RECTAL DAILY PRN PRN Reason: SEVERE CONSITIPATION Citric Acid/Sodium Citrate (Sodium Citrate/Citric Acid Liq) 30 ml PO HSE COORDINATOR [facility] Stop: 08/24/18 15:29 Ephedrine Sulfate (Ephedrine/Ns Syringe) 10 mg IV.PUSH UNSCH PRN PRN Reason: SEE LABEL COMMENTS Stop: 08/21/18 20:49 Lactated Ringer's (Lr 1000 Ml Inj) 1,000 mls @ 125 mls/hr IV.CONT .Q8H [facility] Last Admin: 08/20/18 20:52 Dose: 125 mls/hr Lactated Ringer's (Lr 1000 Ml Inj) 1,000 mls @ 3,000 mls/hr IV.SIG UNSCH PRN PRN Reason: compromise or epidural Sodium Chloride (Ns Inj) 500 mls @ 1,000 mls/hr IV.SIG UNSCH PRN PRN Reason: SEE LABEL COMMENTS Sodium Chloride (Ns Inj) 1,000 mls @ 100 mls/hr IV.CONT .Q10H PRN PRN Reason: SEE LABEL COMMENTS Penicillin G Potassium 2,500, (000 unit/ Sodium Chloride) 100 mls @ 200 mls/hr IV.SIG Q4H [facility] Last Admin: 08/20/18 20:51 Dose: 200 mls/hr Oxytocin (Pitocin 30 Units/Ns 500 Ml Premix) 30 units in 500 mls @ 2 mls/hr IV.CONT TITRATE PRN; Protocol PRN Reason: For induction of labor Last Admin: 08/20/18 19:25 Dose: 2 milliunit/min, 2 mls/hr Fentanyl/Bupivacaine/Sodium Chlor (Fentanyl 2 Mcg-Bupiv 0.125% Epi) 150 mls @ 10 mls/hr EPIDURAL PRN PRN PRN Reason: for Labor Pain Last Admin: 08/20/18 20:52 Dose: 10 mls/hr Oxytocin (Pitocin 30 Units/Ns 500 Ml Premix) 30 units in 500 mls @ 100 mls/hr IV.CONT UNSCH PRN PRN Reason: Heavy bleeding Ibuprofen (Motrin) 800 mg PO Q8H PRN PRN Reason: For Cramping Last Admin: 08/21/18 01:11 Dose: 800 mg Lactulose (Lactulose Liq) 30 ml PO DAILY PRN PRN Reason: SEVERE CONSITIPATION Lidocaine HCl (Xylocaine 1% Inj) 0.1 ml I-DERMAL PRN PRN PRN Reason: For IV start Stop: 08/23/18 15:27 Lidocaine HCl (Xylocaine 1% Inj) 10 ml INFILTRATN PRN PRN PRN Reason: For episiotomy repair Stop: 08/22/18 15:27 Mineral Oil (Muri-Lube Oil) 10 ml TOPICAL UNSCH PRN PRN Reason: PRN perineal massage Miscellaneous Information (Misc Information) 1 each OTHER UNSCH PRN PRN Reason: SEE LABEL COMMENTS Stop: 08/21/18 20:49 Miscellaneous Information (Misc Information) 1 each OTHER UNSCH PRN PRN Reason: SEE LABEL COMMENTS Stop: 08/21/18 20:49 Naloxone HCl (Narcan Inj) 0.1 mg IV.PUSH Q2M PRN PRN Reason: for opiate reversal Naloxone HCl (Narcan Inj) 0.1 mg IV.PUSH Q2M PRN PRN Reason: for opiate reversal Ondansetron HCl (Zofran Inj) 4 mg IV.PUSH Q6H PRN PRN Reason: NAUSEA OR VOMITING Ondansetron HCl (Zofran Odt) 4 mg PO Q6H PRN PRN Reason: NAUSEA OR VOMITING Oxycodone/Acetaminophen (Percocet 5/325 Mg) 1 tab PO Q4H PRN PRN Reason: PAIN SCALE 3 TO 5 Oxycodone/Acetaminophen (Percocet 5/325 Mg) 2 tab PO Q4H PRN PRN Reason: PAIN SCALE 6 TO 10 Senna/Docusate Sodium (Gill-Colace) 1 tab PO BID GÓMEZ Sennosides (Senokot) 17.2 mg PO Q12H PRN PRN Reason: Moderate Constipation Sodium Chloride (Ns Flush) 2 ml IV.FLUSH BID GÓMEZ Sodium Chloride (Ns Flush) 2 ml IV.FLUSH PRN PRN PRN Reason: FLUSH AFTER USING IV ACCESS Witch Jacki/Glycerin (Tucks Pads) 1 applicatio RECTAL QID PRN PRN Reason: HEMORRHOIDS Last Admin: 08/21/18 01:11 Dose: 1 applicatio Zolpidem Tartrate (Ambien) 5 mg PO HS PRN PRN Reason: SLEEP Assessment and Plan - Diagnosis (1) Normal course Code(s): Z39.2 - Encounter for routine follow-up Status: Acute - Plan Patient is a 23-year-old G 2 P 2 delivered at 38 weeks. Patient is day 1 after spontaneous vaginal delivery. Patient does have a history of gestational hypertension. Her blood pressures are stable currently. Systolics were in the 160s during labor and delivery. Patient was counseled to do 6 weeks of pelvic rest. Patient was counseled to follow up in 6 weeks. --AF VSS- BP 146/95 --Continue to monitor BP --Continue routine care --Motrin and percocet when necessary for pain --Encourage OOB --Pelvic rest for 6 weeks will need follow-up appointment at that time. --Contraception: still contemplating --Anticipate discharge tomorrow
[2018-08-21] MEDS ORDERED: Diphtheria/Tetanus/Pertussis Vaccine Inj 0.5 ML Syringe IM ONE (16:00)
[2018-08-21] MEDS ORDERED: Measles/Mumps/Rubella Vaccine Inj 0.5 ML Vial SQ ONE (16:00)
[2018-08-21] MEDS: Senna/Docusate Sodium 8.6/50 MG Tablet PO SCH ×2 (17:57→20:36)
[2018-08-21] MEDS ORDERED: Influenza (Quadrivalent) Vaccine 0.5 ML Syringe IM ONE (18:45)
[2018-08-21] MEDS: Penicillin G Potassium Inj 2,500,000 UNIT in Sodium Chlor 0.9% Inj 100 ML IV.SIG SCH ×2 (20:36→20:46)
[2018-08-22] MEDS: Senna/Docusate Sodium 8.6/50 MG Tablet PO SCH (08:21)
--- NOTE | 2018-08-22 08:27 | P.PNOB ---
Subjective Post day: 2 Interval history: Patient is a 23-year-old GBS+ delivered at 38 weeks. Patient is day 2 after vaginal delivery. Patient does have a history of gestational hypertension. Patient's last recorded BP was 145/92. Patient's pain is well- controlled. Patient reports eating and drinking without any nausea or vomiting. Patient reports minimal bleeding. Patient has passed gas but no bowel movements. Patient is walking without lower extremity pain or shortness of breath. She feels less edematous now than she did before delivery. She denies chest pain, headache, blurry vision, or dizziness. Objective Vital Signs/I&O: Vital Signs 08/21/18 20:00 08/22/18 08:00 Temperature 98.0 F 97.6 F Pulse Rate 85 76 Respiratory Rate 15 20 Blood Pressure 150/96 H 145/92 H Result Diagrams: 08/20/18 16:05 08/20/18 13:35 Objective Remarks: GENERAL: Well-nourished, well-developed patient. CARDIOVASCULAR: Regular rate and rhythm without murmurs, gallops, or rubs. RESPIRATORY: Breath sounds equal bilaterally. No accessory muscle use. ABDOMEN/GI: non-tender. Fundus: Firm, non-tender at umbilicus. GENITOURINARY: Light to moderate bleeding. EXTREMITIES: Bilateral pedal edema. No cyanosis, non-tender, without signs of DVT. Medications and IVs: Active Medications Acetaminophen (Tylenol) 650 mg PO Q4H PRN PRN Reason: PAIN SCALE 1 TO 2 Al Hydroxide/Mg Hydroxide (Milk Of Magnesia Liq) 30 ml PO Q12H PRN PRN Reason: Mild Constipation Benzocaine (Americaine 20% Top [place]) 1 spray TOPICAL Q4H PRN PRN Reason: For Perineum Discomfort Last Admin: 08/21/18 01:11 Dose: 1 spray Bisacodyl (Dulcolax Supp) 10 mg RECTAL DAILY PRN PRN Reason: SEVERE CONSITIPATION Citric Acid/Sodium Citrate (Sodium Citrate/Citric Acid Liq) 30 ml PO [facility] [facility] Stop: 08/24/18 15:29 Lactated Ringer's (Lr 1000 Ml Inj) 1,000 mls @ 125 mls/hr IV.CONT .Q8H [facility] Last Admin: 08/21/18 20:46 Dose: Not Given Lactated Ringer's (Lr 1000 Ml Inj) 1,000 mls @ 3,000 mls/hr IV.SIG UNSCH PRN PRN Reason: compromise or epidural Sodium Chloride (Ns Inj) 500 mls @ 1,000 mls/hr IV.SIG UNSCH PRN PRN Reason: SEE LABEL COMMENTS Sodium Chloride (Ns Inj) 1,000 mls @ 100 mls/hr IV.CONT .Q10H PRN PRN Reason: SEE LABEL COMMENTS Penicillin G Potassium 2,500, (000 unit/ Sodium Chloride) 100 mls @ 200 mls/hr IV.SIG Q4H [facility] Last Admin: 08/21/18 20:46 Dose: Not Given Oxytocin (Pitocin 30 Units/Ns 500 Ml Premix) 30 units in 500 mls @ 2 mls/hr IV.CONT TITRATE PRN; Protocol PRN Reason: For induction of labor Last Admin: 08/20/18 19:25 Dose: 2 milliunit/min, 2 mls/hr Fentanyl/Bupivacaine/Sodium Chlor (Fentanyl 2 Mcg-Bupiv 0.125% Epi) 150 mls @ 10 mls/hr EPIDURAL PRN PRN PRN Reason: for Labor Pain Last Admin: 08/20/18 20:52 Dose: 10 mls/hr Oxytocin (Pitocin 30 Units/Ns 500 Ml Premix) 30 units in 500 mls @ 100 mls/hr IV.CONT UNSCH PRN PRN Reason: Heavy bleeding Ibuprofen (Motrin) 800 mg PO Q8H PRN PRN Reason: For Cramping Last Admin: 08/22/18 08:14 Dose: 800 mg Lactulose (Lactulose Liq) 30 ml PO DAILY PRN PRN Reason: SEVERE CONSITIPATION Lidocaine HCl (Xylocaine 1% Inj) 0.1 ml I-DERMAL PRN PRN PRN Reason: For IV start Stop: 08/23/18 15:27 Lidocaine HCl (Xylocaine 1% Inj) 10 ml INFILTRATN PRN PRN PRN Reason: For episiotomy repair Stop: 08/22/18 15:27 Mineral Oil (Muri-Lube Oil) 10 ml TOPICAL UNSCH PRN PRN Reason: PRN perineal massage Naloxone HCl (Narcan Inj) 0.1 mg IV.PUSH Q2M PRN PRN Reason: for opiate reversal Naloxone HCl (Narcan Inj) 0.1 mg IV.PUSH Q2M PRN PRN Reason: for opiate reversal Ondansetron HCl (Zofran Inj) 4 mg IV.PUSH Q6H PRN PRN Reason: NAUSEA OR VOMITING Ondansetron HCl (Zofran Odt) 4 mg PO Q6H PRN PRN Reason: NAUSEA OR VOMITING Oxycodone/Acetaminophen (Percocet 5/325 Mg) 1 tab PO Q4H PRN PRN Reason: PAIN SCALE 3 TO 5 Oxycodone/Acetaminophen (Percocet 5/325 Mg) 2 tab PO Q4H PRN PRN Reason: PAIN SCALE 6 TO 10 Senna/Docusate Sodium (Gill-Colace) 1 tab PO BID [facility] Last Admin: 08/22/18 08:21 Dose: Not Given Sennosides (Senokot) 17.2 mg PO Q12H PRN PRN Reason: Moderate Constipation Sodium Chloride (Ns Flush) 2 ml IV.FLUSH BID [facility] Last Admin: 08/21/18 20:36 Dose: Not Given Sodium Chloride (Ns Flush) 2 ml IV.FLUSH PRN PRN PRN Reason: FLUSH AFTER USING IV ACCESS Witch Jacki/Glycerin (Tucks Pads) 1 applicatio RECTAL QID PRN PRN Reason: HEMORRHOIDS Last Admin: 08/21/18 01:11 Dose: 1 applicatio Zolpidem Tartrate (Ambien) 5 mg PO HS PRN PRN Reason: SLEEP Assessment and Plan - Diagnosis (1) Normal course Code(s): Z39.2 - Encounter for routine follow-up Status: Acute (2) Elevated blood pressure affecting in third trimester, antepartum Code(s): O16.3 - Unspecified maternal hypertension, third trimester Status: Acute - Plan Patient is a 23-year-old G 2 P 2 delivered at 38 weeks. Patient is day 2 after vaginal delivery. Patient does have a history of gestational hypertension. Her blood pressures are stable but still elevated with the last recorded BP at 150/96. She is asymptomatic. She has pedal edema bilaterally. Systolics were in the 160s and diastolics in 100s during labor and delivery. --AF VSS- BP 145/92 --UA --CBC to monitor platelets --CMP to monitor LFTs --Procardia XL 30 mg --Continue to monitor BP- if patient's BP responds to procardia patient may be able to go home today --Urine protien/creatinine ratio was 0.89 but sample was clean catch not cath --May consider labetalol 100 mg BID for 7 days with close follow-up --Continue routine care --Motrin and percocet when necessary for pain --Encourage OOB --Pelvic rest for 6 weeks will need follow-up appointment at that time. --Contraception: still contemplating --Anticipate discharge today if patient's BP is 130s-140s systolic with nifedipine. --Instruct patient to report to ED if she has even a dull headache, increased edema or HTN. She should monitor her BPs as an outpatient. She will continue nifedipine 30 mg as an outpatient with follow up with her OB provider in 1 week.
[2018-08-22 09:06] LABS: Bacteria,Urine Rare /hpf; Bilirubin,Urine Negative (Negative); Clarity,Urine Hazy (Clear); Color,Urine Red (Yellw/Straw); Glucose,Urine (UA) Negative (Negative); Leukocyte Esterase,Urine Small (Negative); Nitrite,Urine Negative (Negative); Specific Gravity,Urine 1.006 (1.002-1.035); Squamous Epithelial Cell,Urine 3 /hpf (0-5)
[2018-08-22 09:16] LABS: Protein/Creatinine Ratio,Urine 0.89 (0.00-0.14)
[2018-08-22 10:19] LABS: Baso # (Auto) 0.1 th/mm3 (0.0-0.2); Baso % (Auto) 1.1 % (0.0-2.0); Eos # (Auto) 0.2 th/mm3 (0.0-0.4); Eos % (Auto) 1.3 % (0.0-4.0); Hematocrit 27.9 % (35.0-46.0); Hemoglobin 9.2 gm/dL (11.6-15.3); Lymph # (Auto) 2.2 th/mm3 (1.0-4.8); Lymph % (Auto) 17.8 % (9.0-44.0); Mean Corpuscular Hemoglobin 29.4 pg (27.0-34.0); Mean Corpuscular Volume 88.9 fL (80.0-100.0); Mean Platelet Volume 8.5 fL (7.0-11.0); Mono # (Auto) 0.8 th/mm3 (0.0-0.9); Mono % (Auto) 6.3 % (0.0-8.0); Neut # (Auto) 9.1 th/mm3 (1.8-7.7); Neut % (Auto) 73.5 % (16.0-70.0); Platelet Count 328 th/mm3 (150-450); Red Blood Count 3.13 mil/mm3 (4.00-5.30); Red Cell Distribution Width 13.2 % (11.6-17.2); White Blood Count 12.4 th/mm3 (4.0-11.0)
[2018-08-22 10:40] LABS: Alanine Aminotransferase 10 U/L (10-53); Albumin 2.2 g/dL (3.4-5.0); Alkaline Phosphatase 132 U/L (45-117); Anion Gap 10 meq/L (5-15); Aspartate Aminotransferase 23 U/L (15-37); Blood Urea Nitrogen 8 mg/dL (7-18); Carbon Dioxide 24.1 meq/L (21.0-32.0); Chloride 109 meq/L (98-107); Glomerular Filtration Rate Greater Than 89 mL/min (>89); Glucose,Random 80 mg/dL (74-106); Potassium 4.3 meq/L (3.5-5.1); Sodium 143 meq/L (136-145); Total Protein 6.1 g/dL (6.4-8.2)
--- NOTE | 2018-08-22 17:44 | P.OBGPN ---
Patient seen and examined bedside. Nursing called because patient is very distressed, she needs a nicotine patch and she is wondering when she will be able to go home. I have emphasized with the patient that we are concerned about her blood pressures and have been watching them over the day as we have been adding medications. We ideally want her blood pressures under 140/90, however her blood pressures have slightly increased this afternoon. We will provide a nicotine patch for her and retake her blood pressure. Continue Procardia 30 twice daily Follow-up blood pressures Patient confirms understanding
[2018-08-23] MEDS ORDERED: Labetalol 100 MG Tablet PO SCH (01:15)
[2018-08-23] MEDS: Senna/Docusate Sodium 8.6/50 MG Tablet PO SCH (01:19)
[2018-08-23] MEDS: Penicillin G Potassium Inj 2,500,000 UNIT in Sodium Chlor 0.9% Inj 100 ML IV.SIG SCH ×3 (01:20→01:22)
--- NOTE | 2018-08-23 01:30 | P.OBGPN ---
BPs evaluated, no significant change noted on p.o. Procardia. Contacted RN plan to DC Procardia and start labetalol 100 mg twice daily first dose now.
[2018-08-23 06:13] VITALS: RESP 18; TEMP 98.3
[2018-08-23 07:29] VITALS: BP 140/83; PULSE 102
--- NOTE | 2018-08-23 07:32 | P.PNOB ---
Subjective Post day: 3 Interval history: day #3, delivered as at 38 weeks gestation, doing well today. No acute events overnight. Patient continues to ambulate and void without difficulty. Pain well controlled on current medications. Denies any chest pain /shortness of breath/dizziness. No calf tenderness. Objective Vital Signs/I&O: Vital Signs 08/22/18 08:00 08/22/18 12:30 08/22/18 16:45 Temperature 97.6 F Pulse Rate 76 89 111 H Respiratory Rate 20 20 Blood Pressure 145/92 H 147/97 H 158/97 H 08/22/18 18:00 08/22/18 20:00 08/23/18 00:00 Temperature 98.0 F 98.2 F Pulse Rate 119 H 72 103 H Respiratory Rate 18 18 Blood Pressure 140/84 148/97 H 148/92 H 08/23/18 01:28 08/23/18 04:00 Temperature 98.3 F Pulse Rate 106 H 67 Respiratory Rate 20 18 Blood Pressure 133/86 147/74 H Result Diagrams: 08/22/18 10:05 08/22/18 10:05 Objective Remarks: GENERAL: Well-nourished, well-developed patient. CARDIOVASCULAR: Regular rate and rhythm without murmurs, gallops, or rubs. RESPIRATORY: Breath sounds equal bilaterally. No accessory muscle use. ABDOMEN/GI: Abdomen soft, non-tender. Fundus: Firm, non-tender at umbilicus. GENITOURINARY: Light to moderate bleeding. EXTREMITIES: No cyanosis or edema, non-tender, without signs of DVT. Medications and IVs: Active Medications Acetaminophen (Tylenol) 650 mg PO Q4H PRN PRN Reason: PAIN SCALE 1 TO 2 Al Hydroxide/Mg Hydroxide (Milk Of Magnesia Liq) 30 ml PO Q12H PRN PRN Reason: Mild Constipation Benzocaine (Americaine 20% Top [place]) 1 spray TOPICAL Q4H PRN PRN Reason: For Perineum Discomfort Last Admin: 08/21/18 01:11 Dose: 1 spray Bisacodyl (Dulcolax Supp) 10 mg RECTAL DAILY PRN PRN Reason: SEVERE CONSITIPATION Citric Acid/Sodium Citrate (Sodium Citrate/Citric Acid Liq) 30 ml PO [facility] ASSOCIATE [facility] Stop: 08/24/18 15:29 Lactated Ringer's (Lr 1000 Ml Inj) 1,000 mls @ 125 mls/hr IV.CONT .Q8H [facility] Last Admin: 08/23/18 01:21 Dose: Not Given Lactated Ringer's (Lr 1000 Ml Inj) 1,000 mls @ 3,000 mls/hr IV.SIG UNSCH PRN PRN Reason: compromise or epidural Sodium Chloride (Ns Inj) 500 mls @ 1,000 mls/hr IV.SIG UNSCH PRN PRN Reason: SEE LABEL COMMENTS Sodium Chloride (Ns Inj) 1,000 mls @ 100 mls/hr IV.CONT .Q10H PRN PRN Reason: SEE LABEL COMMENTS Penicillin G Potassium 2,500, (000 unit/ Sodium Chloride) 100 mls @ 200 mls/hr IV.SIG Q4H [facility] Last Admin: 08/23/18 01:22 Dose: Not Given Oxytocin (Pitocin 30 Units/Ns 500 Ml Premix) 30 units in 500 mls @ 2 mls/hr IV.CONT TITRATE PRN; Protocol PRN Reason: For induction of labor Last Admin: 08/20/18 19:25 Dose: 2 milliunit/min, 2 mls/hr Fentanyl/Bupivacaine/Sodium Chlor (Fentanyl 2 Mcg-Bupiv 0.125% Epi) 150 mls @ 10 mls/hr EPIDURAL PRN PRN PRN Reason: for Labor Pain Last Admin: 08/20/18 20:52 Dose: 10 mls/hr Oxytocin (Pitocin 30 Units/Ns 500 Ml Premix) 30 units in 500 mls @ 100 mls/hr IV.CONT UNSCH PRN PRN Reason: Heavy bleeding Ibuprofen (Motrin) 800 mg PO Q8H PRN PRN Reason: For Cramping Last Admin: 08/22/18 22:49 Dose: 800 mg Labetalol HCl (Trandate) 100 mg PO BID [facility] Last Admin: 08/23/18 01:29 Dose: 100 mg Lactulose (Lactulose Liq) 30 ml PO DAILY PRN PRN Reason: SEVERE CONSITIPATION Lidocaine HCl (Xylocaine 1% Inj) 0.1 ml I-DERMAL PRN PRN PRN Reason: For IV start Stop: 08/23/18 15:27 Mineral Oil (Muri-Lube Oil) 10 ml TOPICAL UNSCH PRN PRN Reason: PRN perineal massage Naloxone HCl (Narcan Inj) 0.1 mg IV.PUSH Q2M PRN PRN Reason: for opiate reversal Naloxone HCl (Narcan Inj) 0.1 mg IV.PUSH Q2M PRN PRN Reason: for opiate reversal Ondansetron HCl (Zofran Inj) 4 mg IV.PUSH Q6H PRN PRN Reason: NAUSEA OR VOMITING Ondansetron HCl (Zofran Odt) 4 mg PO Q6H PRN PRN Reason: NAUSEA OR VOMITING Oxycodone/Acetaminophen (Percocet 5/325 Mg) 1 tab PO Q4H PRN PRN Reason: PAIN SCALE 3 TO 5 Oxycodone/Acetaminophen (Percocet 5/325 Mg) 2 tab PO Q4H PRN PRN Reason: PAIN SCALE 6 TO 10 Patch Removal (Remove Old Patch) 1 each T-DERMAL Q24H [facility] Stop: 08/23/18 17:01 Senna/Docusate Sodium (Gill-Colace) 1 tab PO BID [facility] Last Admin: 08/23/18 01:19 Dose: Not Given Sennosides (Senokot) 17.2 mg PO Q12H PRN PRN Reason: Moderate Constipation Sodium Chloride (Ns Flush) 2 ml IV.FLUSH BID [facility] Last Admin: 08/22/18 15:45 Dose: Not Given Sodium Chloride (Ns Flush) 2 ml IV.FLUSH PRN PRN PRN Reason: FLUSH AFTER USING IV ACCESS Witch Jacki/Glycerin (Tucks Pads) 1 applicatio RECTAL QID PRN PRN Reason: HEMORRHOIDS Last Admin: 08/21/18 01:11 Dose: 1 applicatio Zolpidem Tartrate (Ambien) 5 mg PO HS PRN PRN Reason: SLEEP Assessment and Plan - Diagnosis (1) Normal course Code(s): Z39.2 - Encounter for routine follow-up Status: Acute Plan: Patient was counseled to follow up in 6 weeks. Patient requested follow-up and contraception. --AF , see plan below for blood pressure control --Continue routine care --Motrin and Percocet when necessary for pain --Encourage OOB --Pelvic rest for 6 weeks will need follow-up appointment at that time. --Contraception: Unsure, will continue to consider with PCP --Anticipate discharge tomorrow (2) Elevated blood pressure affecting in third trimester, antepartum Code(s): O16.3 - Unspecified maternal hypertension, third trimester Status: Acute Plan: Patient with history of gestational hypertension at the end of , with sustained borderline high BPs following delivery. -BP overnight; 148/92, 133/86, 147/74, 140/83 -BP stable on labetalol 100 twice daily, will plan to DC on this regimen -Patient continues to be asymptomatic, no increased edema, headache, blurry vision, right upper quadrant pain, or change in urination -[facility] to go see them on Saturday or Saturday for blood pressure check. Patient agrees to take her blood pressure at home over the weekend. She agrees that she knows how to get her medication and she can afford her medication. -Patient advised to return to ED for any blood pressure 160/105, or any chest pain/shortness of breath/dizziness. Patient also advised to come to the ED with any increased headache or blurry vision, come to the ED with any severe right upper quadrant pain. Patient confirms understanding of plan, and agrees to follow-up.
== END 2018-08-23 09:18 | disposition home or self-care (01) ==
LOC: HOBED 12:23 → H2E 15:30 → H1EA 08-21 00:18
PROVIDERS: ADMIT Obstetrics & Gynecology; ATTEND Obstetrics & Gynecology